=== PATIENT | male | born 2000 | race Caucasian/White ===

== ENCOUNTER → 2024-04-10 06:35 | Day surgery (SDC) | payer BC, SELFPAY | LOC: GI 06:35 | PROVIDERS: ATTENDING PHYSICIAN Internal Medicine Gastroenterology | DX: K29.70 Gastritis, unspecified, without bleeding (principal); K22.89 Other specified disease of esophagus; K29.50 Unspecified chronic gastritis without bleeding; K20.90 Esophagitis, unspecified without bleeding; R10.13 Epigastric pain | CPT/HCPCS: 43239; 88305; 88312; 88342 ==